=== PATIENT | female | born 1965 | race Caucasian/White ===

== ENCOUNTER 2016-07-03 16:00 | Emergency (ER) | payer BC ==
[2016-07-03 16:10] VITALS: BP 123/78; PULSE 68; TEMP 98.4; BMI 25.0
--- NOTE | 2016-07-03 16:45 | PDOC ---
History of Present Illness - General History Source: Patient Exam Limitations: No Limitations - History of Present Illness Initial Comments: 07/03/16 16:47 The patient is a 50 year old female, with a significant past medical history of anxiety disorder and breast CA (s/p bilateral mastectomy), who presents to the emergency department with intermittent lower abdominal pressure and pain since friday night. She reports the abdominal pressure/pain often radiates to her lower back/flank area. She ranks her pressure a 5/10 in pain intensity while currently in the ER. She notes the pain/pressure is often alleviated while she is lying down. She reports also having mild nausea. Patient also has chief complaints of having discharge with an odor since last week. She reports the discharge is often white and feels watery. She reports her last bowel movement was today, and was normal without any blood. She denies recent fevers, chills, headache or dizziness. She denies recent vomit, diarrhea or constipation. She denies dysuria, frequency, urgency or hematuria. She reports tamoxifen often gives her vaginal discharge. Allergies: erythromycin and sulfa Past surgical history: Bilateral mastectomy (breast CA), total hysterectomy ( 2008), and oophorectomy Social history: Nonsmoker. Denies EtOH use and drug abuse. <Jean Claude Kelley - Last Filed: 07/03/16 16:47> <Eva Foster - Last Filed: 07/03/16 17:39> - General Chief Complaint: Pain, Acute Stated Complaint: LOWER ABDOMINAL/LOWER ABCK PAIN Time Seen by Provider: 07/03/16 16:05 Past History <Jean Claude Kelley - Last Filed: 07/03/16 16:47> - Past Medical History Cancer: Yes (BREAST CA) Psychiatric Problems: Yes (ANXITEY) - Surgical History Lung Surgery: Yes (BRONCHIOGENIC CYST) - Psycho/Social/Smoking Cessation Hx Anxiety: Yes Suicidal Ideation: No Smoking Status: No Smoking History: Unknown if ever smoked Have you smoked in the past 12 months: No Number of Cigarettes Smoked Daily: 0 Information on smoking cessation initiated: No Hx Alcohol Use: No Drug/Substance Use Hx: No Substance Use Type: None <Eva Foster - Last Filed: 07/03/16 17:39> - Past Medical History Allergies/Adverse Reactions: Allergies Allergy/AdvReac Type Severity Reaction Status Date / Time erythromycin base Allergy Vomiting Verified 07/03/16 16:02 [Erythromycin Base] Sulfa (Sulfonamide Allergy Rash Verified 07/03/16 16:02 Antibiotics) Home Medications: Ambulatory Orders Tamoxifen Citrate 20 mg PO DAILY 01/24/13 Diazepam [Valium] 7.5 mg PO DAILY 06/02/14 Gabapentin 100 mg PO HS 05/08/15 Review of Systems - Review of Systems Able to Perform ROS?: Yes Comments:: 07/03/16 16:47 GENERAL/CONSTITUTIONAL: No fever or chills. No weakness. HEAD, EYES, EARS, NOSE AND THROAT: No change in vision. No ear pain or discharge. No sore throat. CARDIOVASCULAR: No chest pain or shortness of breath. RESPIRATORY: No cough, wheezing, or hemoptysis. GASTROINTESTINAL: +abdominal pain and nausea. No vomiting, diarrhea or constipation. GENITOURINARY: +vaginal discharge (white and watery). No dysuria, frequency, or change in urination. MUSCULOSKELETAL: +back pain. No joint or muscle swelling or pain. No neck pain. SKIN: No rash NEUROLOGIC: No headache, vertigo, loss of consciousness, or change in strength/ sensation. ENDOCRINE: No increased thirst. No abnormal weight change. HEMATOLOGIC/LYMPHATIC: No anemia, easy bleeding, or history of blood clots. ALLERGIC/IMMUNOLOGIC: No hives or skin allergy. <Jean Claude Kelley - Last Filed: 07/03/16 16:47> *Physical Exam - Vital Signs Last Vital Signs Temp Pulse Resp BP Pulse Ox 98.4 F 68 18 123/78 99 07/03/16 16:02 07/03/16 16:02 07/03/16 16:02 07/03/16 16:02 07/03/16 16:02 - Physical Exam Comments: 07/03/16 16:47 GENERAL: Awake, alert, and fully oriented, in no acute distress HEAD: No signs of trauma EYES: PERRLA, EOMI, sclera anicteric, conjunctiva clear ENT: Auricles normal inspection, hearing grossly normal, nares patent, oropharynx clear without exudates. Moist mucosa NECK: Normal ROM, supple, no lymphadenopathy, JVD, or masses LUNGS: Breath sounds equal, clear to auscultation bilaterally. No wheezes, and no crackles HEART: Regular rate and rhythm, normal S1 and S2, no murmurs, rubs or gallops ABDOMEN: Soft, Mild suprapubic tenderness, normoactive bowel sounds. No guarding, no rebound. No masses EXTREMITIES: Normal range of motion, no edema. No clubbing or cyanosis. No cords, erythema, or tenderness NEUROLOGICAL: Cranial nerves II through XII grossly intact. Normal speech, normal gait SKIN: Warm, Dry, normal turgor, no rashes or lesions noted. <Jean Claude Kelley - Last Filed: 07/03/16 16:47> - Vital Signs Last Vital Signs Temp Pulse Resp BP Pulse Ox 98.4 F 68 18 123/78 99 07/03/16 16:02 07/03/16 16:02 07/03/16 16:02 07/03/16 16:02 07/03/16 16:02 <Eva Foster - Last Filed: 07/03/16 17:39> *DC/Admit/Observation/Transfer - Attestations Scribe Attestion: 07/03/16 16:47 Documentation prepared by Jean Claude Kelley, acting as medical accountant for Eva Foster MD. <Jean Claude Kelley - Last Filed: 07/03/16 16:47> - Discharge Dispostion Admit: No <Eva Foster - Last Filed: 07/03/16 17:39> Diagnosis at time of Disposition: Urinary tract infection Qualifiers: Urinary tract infection type: acute cystitis Hematuria presence: without hematuria Qualified Code(s): N30.00 - Acute cystitis without hematuria - Discharge Dispostion Disposition: HOME Condition at time of disposition: Stable
[2016-07-03 17:06] LABS: URINE APPEARANCE Clear; URINE BILIRUBIN Negative (NEGATIVE); URINE BLOOD Negative (NEGATIVE); URINE COLOR YELLOW; URINE GLUCOSE (UA) Negative (NEGATIVE); URINE KETONE Negative (NEGATIVE); URINE LEUK ESTERASE 1+ (NEGATIVE); URINE NITRITE Negative (NEGATIVE); URINE PROTEIN Negative (NEGATIVE); URINE UROBILINOGEN 0.2 E.U/dl (0.2-1.0)
[2016-07-03 17:42] LABS: URINE BACTERIA FEW /hpf (NEGATIVE); URINE RBC 0-2 /hpf (0-3)
== END 2016-07-03 17:56 | disposition home or self-care (01) ==
LOC: FER 16:00
DX: N30.00 Acute cystitis without hematuria (principal); F41.9 Anxiety disorder, unspecified; Z85.3 Personal history of malignant neoplasm of breast
CPT/HCPCS: 81003; 81015; 87086; 99283-25

== ENCOUNTER 2016-07-07 17:45 | Emergency (ER) | payer BC ==
[2016-07-07 17:57] VITALS: BP 129/65; PULSE 63; TEMP 97.8; BMI 24.3
--- NOTE | 2016-07-07 18:32 | PDOC ---
History of Present Illness - General History Source: Patient Exam Limitations: No Limitations - History of Present Illness Initial Comments: 07/07/16 18:34 The patient is a 50 year old female, with a significant past medical history of anxiety disorder and breast CA (s/p bilateral mastectomy), who presents to the emergency department with abdominal pain, frequency, urgency, flank pain and nausea. She describes her abdominal pain as localized in the right lower quadrant, ranging from mild to moderate, with radiation to the right flank. She denies any modifying factors. The patient was last in the ED 3 days ago, and was diagnosed with a UTI. She was prescribed Keflex. The patient denies chest pain, shortness of breath, headache and dizziness. Denies fever, chills, vomit, diarrhea and constipation. Denies dysuria, frequency, urgency and hematuria. Allergies: erythromycin and sulfa Past surgical history: Bilateral mastectomy (breast CA), total hysterectomy ( 2008), and oophorectomy Social history: Nonsmoker. Denies EtOH use and drug abuse. <Raul Marshall - Last Filed: 07/07/16 18:34> <Amish Mcintosh - Last Filed: 07/08/16 11:16> - General Chief Complaint: Pain Stated Complaint: RLQ ABD,URINARY SX, NAUSEA, BACK PAIN Time Seen by Provider: 07/07/16 18:17 Past History <Raul Marshall - Last Filed: 07/07/16 18:34> - Past Medical History Anemia: Yes Cancer: Yes (BREAST CA) Psychiatric Problems: Yes (ANXIETY) Other medical history: HEMORRHOIDS - Surgical History Lung Surgery: Yes (BRONCHIOGENIC CYST) - Reproductive History Is Patient Now?: No - Psycho/Social/Smoking Cessation Hx Anxiety: Yes Suicidal Ideation: No Smoking Status: No Smoking History: Never smoked Have you smoked in the past 12 months: No Number of Cigarettes Smoked Daily: 0 Information on smoking cessation initiated: No Hx Alcohol Use: No Drug/Substance Use Hx: No Substance Use Type: None <Amish Mcintosh - Last Filed: 07/08/16 11:16> - Past Medical History Allergies/Adverse Reactions: Allergies Allergy/AdvReac Type Severity Reaction Status Date / Time erythromycin base Allergy Vomiting Verified 07/07/16 17:50 [Erythromycin Base] Sulfa (Sulfonamide Allergy Rash Verified 07/07/16 17:50 Antibiotics) Home Medications: Ambulatory Orders Tamoxifen Citrate 20 mg PO DAILY 01/24/13 Diazepam [Valium] 7.5 mg PO DAILY 06/02/14 Gabapentin 100 mg PO HS 05/08/15 Cephalexin Monohydrate [Keflex -] 500 mg PO BID #6 capsule 07/03/16 Fluconazole [Diflucan -] 150 mg PO ONCE #1 tablet 07/03/16 Review of Systems - Review of Systems Able to Perform ROS?: Yes Comments:: 07/07/16 18:34 GENERAL/CONSTITUTIONAL: No fever or chills. No weakness. HEAD, EYES, EARS, NOSE AND THROAT: No change in vision. No ear pain or discharge. No sore throat. CARDIOVASCULAR: No chest pain or shortness of breath RESPIRATORY: No cough, wheezing, or hemoptysis. GASTROINTESTINAL: +Right lower quadrant pain, nausea. No vomiting, diarrhea or constipation. GENITOURINARY: +Frequency, urgency and flank pain. No dysuria MUSCULOSKELETAL: No joint or muscle swelling or pain. No neck or back pain. SKIN: No rash NEUROLOGIC: No headache, vertigo, loss of consciousness, or change in strength/ sensation. ENDOCRINE: No increased thirst. No abnormal weight change HEMATOLOGIC/LYMPHATIC: No anemia, easy bleeding, or history of blood clots. ALLERGIC/IMMUNOLOGIC: No hives or skin allergy. <Raul Marshall - Last Filed: 07/07/16 18:34> *Physical Exam - Vital Signs Last Vital Signs Temp Pulse Resp BP Pulse Ox 97.8 F 63 18 129/65 97 07/07/16 17:45 07/07/16 17:45 07/07/16 17:45 07/07/16 17:45 07/07/16 17:45 - Physical Exam Comments: 07/07/16 18:34 GENERAL: Awake, alert, and fully oriented, in no acute distress HEAD: No signs of trauma, normocephalic, atraumatic EYES: PERRLA, EOMI, sclera anicteric, conjunctiva clear ENT: Auricles normal inspection, hearing grossly normal, nares patent, oropharynx clear without exudates. Moist mucosa NECK: Normal ROM, supple, no lymphadenopathy, JVD, or masses LUNGS: No distress, speaks full sentences, clear to auscultation bilaterally HEART: Regular rate and rhythm, normal S1 and S2, no murmurs, rubs or gallops, peripheral pulses normal and equal bilaterally. ABDOMEN: Soft, nontender, normoactive bowel sounds. No guarding, no rebound. No masses EXTREMITIES: Normal inspection, Normal range of motion, no edema. No clubbing or cyanosis. NEUROLOGICAL: Cranial nerves II through XII grossly intact. Normal speech, normal gait, no focal sensorimotor deficits SKIN: Warm, Dry, normal turgor, no rashes or lesions noted. <Raul Marshall - Last Filed: 07/07/16 18:34> - Vital Signs Last Vital Signs Temp Pulse Resp BP Pulse Ox 97.8 F 63 18 129/65 97 07/07/16 17:45 07/07/16 17:45 07/07/16 17:45 07/07/16 17:45 07/07/16 17:45 <Amish Mcintosh - Last Filed: 07/08/16 11:16> ED Treatment Course - LABORATORY CBC & Chemistry Diagram: 07/07/16 18:30 07/07/16 18:30 <Amish Mcintosh - Last Filed: 07/08/16 11:16> *DC/Admit/Observation/Transfer - Attestations Scribe Attestion: 07/07/16 18:35 Documentation prepared by Raul Marshall, acting as hospital medical assistant for Amish Mcintosh MD <Raul Marshall - Last Filed: 07/07/16 18:34> - Discharge Dispostion Admit: No <Amish Mcintosh - Last Filed: 07/08/16 11:16> Diagnosis at time of Disposition: Abdominal pain Qualifiers: Abdominal location: unspecified location Qualified Code(s): R10.9 - Unspecified abdominal pain - Discharge Dispostion Disposition: HOME Condition at time of disposition: Stable - Patient Instructions Additional Instructions: PLENTY OF FLUIDS (WATER/GATORADE) EAT FREQUENT, BALANCED, SMALL MEALS THROUGHOUT THE DAY RETURN IF FEVER, VOMITING, SEVERE PAIN
[2016-07-07] MEDS ORDERED: SODIUM CHLORIDE 1,000 ML IV SCH (18:45)
[2016-07-07 18:56] LABS: URINE APPEARANCE Clear; URINE BILIRUBIN Negative (NEGATIVE); URINE BLOOD Negative (NEGATIVE); URINE GLUCOSE (UA) Negative (NEGATIVE); URINE KETONE Negative (NEGATIVE); URINE LEUK ESTERASE Trace (NEGATIVE); URINE NITRITE Negative (NEGATIVE); URINE PROTEIN Negative (NEGATIVE); URINE UROBILINOGEN 0.2 E.U/dl (0.2-1.0)
[2016-07-07 18:57] LABS: URINE COLOR YELLOW
[2016-07-07 19:02] LABS: BASOPHIL 0.7 % (0-2.0); EOSINOPHIL 1.4 % (0-4.5); MCH 28.8 pg (25.7-33.7); MCHC 32.3 g/dl (32.0-36.0); MEAN PLT VOLUME 9.6 fl (7.5-11.1); NEUTROPHILS 51.2 % (42.8-82.8); PLATELET COUNT 170 K/MM3 (134-434); RDW 12.2 % (11.6-15.6); WHITE BLOOD COUNT 5.7 K/mm3 (4.0-10.0)
[2016-07-07 19:12] LABS: ALK PHOS 48 U/L (32-92); ANION GAP 11 (8-16); CALCIUM 9.3 mg/dl (8.4-10.2); CO2 27 mmol/L (22-28); CREATININE 0.7 mg/dl (0.6-1.3); GLUCOSE,RANDOM 99 mg/dl (74-106); SGOT/AST 24 U/L (10-42); SGPT/ALT 20 U/L (10-40); TOT PROT 6.9 g/dl (6.4-8.3)
[2016-07-07 19:43] LABS: BILIRUBIN,TOTAL < 0.2 mg/dl (0.2-1.0)
--- NOTE | 2016-07-07 21:55 | PDOC ---
*Physical Exam - Vital Signs Last Vital Signs Temp Pulse Resp BP Pulse Ox 97.8 F 63 18 129/65 97 07/07/16 17:45 07/07/16 17:45 07/07/16 17:45 07/07/16 17:45 07/07/16 17:45 ED Treatment Course - LABORATORY CBC & Chemistry Diagram: 07/07/16 18:30 07/07/16 18:30 - ADDITIONAL ORDERS Additional order review: Laboratory Results 07/07/16 07/07/16 18:30 18:30 Sodium 141 Potassium 4.5 Chloride 103 Carbon Dioxide 27 Anion Gap 11 BUN 14 Creatinine 0.7 Creat Clearance w eGFR > 60 Random Glucose 99 Calcium 9.3 Total Bilirubin < 0.2 L AST 24 ALT 20 Alkaline Phosphatase 48 Total Protein 6.9 Albumin 4.0 Urine Color Yellow Urine Appearance Clear Urine pH 5.0 Ur Specific [place] 1.020 Urine Protein Negative Urine Glucose (UA) Negative Urine Ketones Negative Urine Blood Negative Urine Nitrite Negative Urine Bilirubin Negative Urine Urobilinogen 0.2 e.u/dl Ur Leukocyte Esterase Trace 07/07/16 18:30 RBC 4.43 MCV 89.0 MCHC 32.3 RDW 12.2 MPV 9.6 Neutrophils % 51.2 Lymphocytes % 36.7 Monocytes % 10.0 Eosinophils % 1.4 Basophils % 0.7 Progress Note - Progress Note Progress Note: ANXIOUS BUT IN NAD. ABD SOFT AND NOT TENDER CT NORMAL EXCEPT FOR "MODERATELY ABUNDANT STOOL" PT TAKING SPECIAL SMOOTHIES FOR 1 MONTHS TO BE HEALTHIER *DC/Admit/Observation/Transfer Diagnosis at time of Disposition: Abdominal pain Qualifiers: Abdominal location: unspecified location Qualified Code(s): R10.9 - Unspecified abdominal pain - Discharge Dispostion Condition at time of disposition: Stable - Patient Instructions Additional Instructions: PLENTY OF FLUIDS (WATER/GATORADE) EAT FREQUENT, BALANCED, SMALL MEALS THROUGHOUT THE DAY RETURN IF FEVER, VOMITING, SEVERE PAIN
== END 2016-07-07 22:02 | disposition home or self-care (01) ==
LOC: FER 17:45
DX: R10.9 Unspecified abdominal pain (principal); D64.9 Anemia, unspecified; F41.9 Anxiety disorder, unspecified; Z85.3 Personal history of malignant neoplasm of breast
CPT/HCPCS: 36415; 74177-TC; 80053; 81003; 85025; 99283-25